=== PATIENT | female | born 1950 | race Hispanic/Latino ===

== ENCOUNTER → 2020-04-10 | Day surgery (SDC) | payer MEDICARE, OTHER ==
[2020-04-07 12:14] LABS: BASOPHILS # (AUTO) 0.1 (0.0-0.1); EOSINOPHILS # (AUTO) 0.2 (0.0-0.4); EOSINOPHILS % 1.7 % (0.0-6.0); HEMATOCRIT 39.5 % (34.2-44.1); HEMOGLOBIN 12.6 g/dL (12.0-16.0); LYMPHOCYTES # (AUTO) 2.3 (1.0-3.2); LYMPHOCYTES % 26.5 % (18.0-39.1); MEAN CORPUSCULAR HEMOGLOBIN 28.8 pg (28-32); MEAN CORPUSCULAR HGB CONC 31.9 g/dL (31-35); MEAN CORPUSCULAR VOLUME 90.4 fL (81-99); MONOCYTES # (AUTO) 0.5 (0.2-0.8); MONOCYTES % 5.5 % (4.4-11.3); NEUTROPHILS # (AUTO) 5.6 (2.1-6.9); NEUTROPHILS % 65.1 % (38.7-80.0); PLATELET COUNT 310 x10e3/uL (140-360); RED BLOOD COUNT 4.37 x10e6/uL (3.6-5.1); RED CELL DISTRIBUTION WIDTH 13.2 % (11.7-14.4)
--- NOTE | 2020-04-07 13:09 | Diagnostic Imaging Report ---
EXAM: CHEST 2 VIEWS DATE: 04/07/2020 12:19 PM INDICATION: Preoperative evaluation COMPARISON: None FINDINGS: The trachea is midline. The lungs are symmetrically expanded without evidence for large focal consolidation, pneumothorax, or significant pleural effusion. The cardiomediastinal silhouette and pulmonary vasculature are within normal limits. Mild atherosclerotic calcifications noted within the aortic arch. Degenerative changes noted of the visualized spine. No acute osseous abnormality is identified. The surrounding soft tissues are unremarkable. IMPRESSION: No acute cardiopulmonary process identified. Signed by: Dr. Jesse Garcia MD on 04/07/2020 1:05 PM
[~2020-04-10] MED LIST: AMLODIPINE BESY10 MG PO; CEFAZOLIN SOD 1 GM/NS 50ML 50 ML IV ONE; DEXAMETHASONE SOD PHOS INJ 4 MG/ML VIAL ONE; ETOMIDATE 2 MG/ML 10 ML INJ IV ONE; FENTANYL CITRATE/PF 100MCG/2 ML INJ ONE; IOPAMIDOL 300MG/ML 50ML INFUS..BTL IV ONE; LIDOCAINE HCL 2% LOCAL INJ 5 ML SDV VIAL INJ ONE; MIDAZOLAM HCL 2 MG/2 ML VIAL ONE; ONDANSETRON HCL INJ 2MG/ML 2ML 2 MG/ML VIAL ONE; SEVOFLURANE INHAL SOLN 250 ML PEN BTL ONE; SIMVASTATIN20 MG PO
[2020-04-10 14:45] VITALS: BP 136/84
--- NOTE | 2020-04-10 19:56 | Operative Report ---
DATE OF PROCEDURE: 04/10/2020 SURGEON: Emy Quach MD SERVICE: Urology PREOPERATIVE DIAGNOSES: History of right hydronephrosis, status post hysterectomy, presence of double-J stents. POSTOPERATIVE DIAGNOSES: History of right hydronephrosis, status post hysterectomy, presence of double-J stents, mild hydronephrosis and hydroureter on the right side that is small calculus. OPERATIONS PERFORMED: 1. Cystoscopy and left retrograde pyelograms under fluoroscopic control. 2. Removal of double-J stent. 3. Right retrograde pyelogram under fluoroscopic control. 4. Ureteroscopy on the right side. 5. Stone basket of the small calculus. 6. Pelvic exam under anesthesia. SHAFT MECHANIC: None. ANESTHESIA: General. CLINICAL INDICATION: Note, this is a 69-year-old patient, underwent in the past hysterectomy, was noticed to have hydro on the right side and placement of stent. The patient was brought for reassessment. DESCRIPTION OF PROCEDUR AND FINDINGS: After appropriate level of anesthesia was achieved, the patient was placed in lithotomy position, prepped and draped in a sterile fashion. Urethra inspected was unremarkable. Bladder outlet was normal. Bladder mucosa demonstrated some deformity in base of the bladder and this probably may have been related to previous surgeries. An open-end catheter was inserted to the left side and retrograde pyelogram demonstrating a normal collecting system. Following this, the double-J stent was removed, open-end catheter inserted. Retrograde pyelogram demonstrating some mild hydroureter and some dilation of the upper collecting system. She has mild with somewhat more dilation of the upper calices. Following this ureteroscopy was done. A very small calculus was noticed in the ureter and removed with a stone basket. It was small and very soft. It was elected not to keep the double-J stent on that side. Following this, a pelvic exam was done under anesthesia. No masses were palpable in the midline pole of adnexa. The patient tolerated the procedure well, was transferred in satisfactory condition to recovery room. Emy Quach MD [facility] /[id number]
== END | disposition home or self-care (01) ==
LOC: OR 10:45
PROVIDERS: ATTEND Urology
DX: N20.0 Calculus of kidney (principal); N13.30 Unspecified hydronephrosis; Z46.6 Encounter for fitting and adjustment of urinary device; I10 Essential (primary) hypertension; E78.5 Hyperlipidemia, unspecified; Z90.710 Acquired absence of both cervix and uterus; Z01.810 Encounter for preprocedural cardiovascular examination; Z01.812 Encounter for preprocedural laboratory examination; Z01.818 Encounter for other preprocedural examination; Z11.59 Encounter for screening for other viral diseases
CPT/HCPCS: 36415; 52352; 71046; 74420; 85025; 87635; 93005; C1758; C1769; J0690; J1100; J2001; J2250; J2405; J3010; Q9967

== ENCOUNTER → 2020-12-10 | Outpatient (CLI) | payer MEDICARE ==
[~2020-12-10] MED LIST changes: -CEFAZOLIN SOD 1 GM/NS 50ML 50 ML IV ONE; -DEXAMETHASONE SOD PHOS INJ 4 MG/ML VIAL ONE; -ETOMIDATE 2 MG/ML 10 ML INJ IV ONE; -FENTANYL CITRATE/PF 100MCG/2 ML INJ ONE; -IOPAMIDOL 300MG/ML 50ML INFUS..BTL IV ONE; -LIDOCAINE HCL 2% LOCAL INJ 5 ML SDV VIAL INJ ONE; -MIDAZOLAM HCL 2 MG/2 ML VIAL ONE; -ONDANSETRON HCL INJ 2MG/ML 2ML 2 MG/ML VIAL ONE; -SEVOFLURANE INHAL SOLN 250 ML PEN BTL ONE
== END ==
LOC: US 10:27
PROVIDERS: ATTEND Urology
DX: N13.30 Unspecified hydronephrosis (principal); R31.21 Asymptomatic microscopic hematuria
CPT/HCPCS: 76770